=== PATIENT | male | born 1965 | race African-American/Black ===

== ENCOUNTER 2020-05-02 09:16 | Emergency (ER) | payer MEDICAID ==
[~2020-05-02] VITALS: Ht 172.7 cm; Wt 70.0 kg
[2020-05-02] MEDS ORDERED: MORPHINE SULFATE 4 MG/ML CPJ (NOT FOR IM USE) IV ONE (09:45)
[2020-05-02] MEDS ORDERED: PROPOFOL 200MG/20ML VIAL IV ONE (09:45)
[2020-05-02] MEDS ORDERED: ONDANSETRON HCL 4MG/2ML INJ IV ONE (09:45)
[2020-05-02] MEDS ORDERED: KETAMINE HCL 50 MG/ML 10ML IV ONE (09:45)
[2020-05-02 12:15] VITALS: BP 140/72
== END 2020-05-02 12:21 | disposition home or self-care (01) ==
LOC: ER 09:40
DX: S43.014A Anterior dislocation of right humerus, initial encounter (principal); I10 Essential (primary) hypertension; E11.9 Type 2 diabetes mellitus without complications; X58.XXXA Exposure to other specified factors, initial encounter; Y93.89 Activity, other specified; Y92.488 Other paved roadways as the place of occurrence of the external cause
CPT/HCPCS: 23650; 73030; 96374; 96375; 99152; 99285; J2270; J2405; J2704; J3490

== ENCOUNTER 2021-12-20 13:25 | Emergency (ER) | payer MEDICAID ==
[~2021-12-20] VITALS: Ht 160 cm; Wt 70.0 kg
[2021-12-20 13:31] VITALS: BP 167/87
[2021-12-21] MEDS ORDERED: ERYT1OIN6 EACHEYE (01:39)
[2021-12-21] MEDS ORDERED: ACET-2708 MT (01:39)
[2021-12-21] MEDS ORDERED: FLUORESCEIN SODIUM 1MG/STRIP RIGHTEYE ONE (01:45)
[2021-12-21] MEDS ORDERED: ACETAMINOPHEN 500MG TABLET PO ONE (01:45)
== END 2021-12-21 02:00 | disposition home or self-care (01) ==
LOC: ER 13:25
DX: S05.01XA Injury of conjunctiva and corneal abrasion without foreign body, right eye, initial encounter (principal); X58.XXXA Exposure to other specified factors, initial encounter; Y93.9 Activity, unspecified; Y92.9 Unspecified place or not applicable; H57.11 Ocular pain, right eye; I10 Essential (primary) hypertension; E11.9 Type 2 diabetes mellitus without complications
CPT/HCPCS: 99283

== ENCOUNTER 2022-08-04 04:01 | Emergency (ER) | payer MEDICAID ==
[~2022-08-04] VITALS: Ht 160 cm; Wt 68.0 kg
[~2022-08-04 04:01] MED LIST: ACET-2708 MT; ERYT1OIN6 EACHEYE
[2022-08-04] MEDS ORDERED: LIDOCAINE 5% PATCH TOP SCH (06:00)
[2022-08-04] MEDS ORDERED: KETOROLAC 60MG/2ML VIAL IM ONE (06:00)
[2022-08-04] MEDS ORDERED: HYDROCODONE/ACETAMINOPHEN 5/325MG TABLET PO ONE (06:00)
[2022-08-04] MEDS: LIDOCAINE 5% PATCH TOP NR ×2 (06:44→06:46)
[2022-08-04 06:46] VITALS: BP 185/112
[2022-08-04] MEDS ORDERED: IBUP-2029 MT (07:26)
[2022-08-04] MEDS ORDERED: LIDO700A15 TP (07:26)
[2022-08-04] MEDS ORDERED: BACL-141 MT (07:26)
== END 2022-08-04 08:09 | disposition home or self-care (01) ==
LOC: ER 04:01
DX: M54.59 Other low back pain (principal); I10 Essential (primary) hypertension; E11.9 Type 2 diabetes mellitus without complications
CPT/HCPCS: 96372; 99283; J1885

== ENCOUNTER 2025-05-16 10:07 | Emergency (ER) | payer MEDICAID ==
[~2025-05-16] VITALS: Ht 157.5 cm; Wt 68.0 kg
[~2025-05-16 10:07] MED LIST changes: +BACL-141 MT; +IBUP-1455 MT; +LIDO-53 TP
[2025-05-16 10:34] VITALS: TEMP 36.9; O2SAT 100
[2025-05-16 13:22] LABS: BASOPHILS % 0.2 % (0.0-2.0); EOSINOPHILS % 0.1 % (0.0-5.0); HEMATOCRIT. 43.0 % (42.0-52.0); HEMOGLOBIN. 14.1 g/dL (14.0-18.0); LYMPHOCYTES % 7.7 % (20.0-50.0); MEAN PLATELET VOLUME 9.4 fl (7.4-10.4); MONOCYTES % 4.0 % (2.0-8.0); NEUTROPHILS % 88.0 % (40.0-76.0); PLATELET 196 x1000/uL (130-400); RED BLOOD CELL COUNT 4.85 mill/uL (4.7-6.1); RED CELL DISTRIBUTION WIDTH 14.4 % (11.6-14.6)
[2025-05-16 13:31] LABS: CREATININE 0.9 mg/dL (0.6-1.3)
[2025-05-16 13:32] LABS: UREA NITROGEN BLOOD 7 mg/dL (9-23)
[2025-05-16 13:33] LABS: ASPARTATE AMINOTRANSFERASE 14 IU/L (<34)
[2025-05-16 13:34] LABS: BILIRUBIN DIRECT 0.3 mg/dL (<=3.0); BILIRUBIN TOTAL 1.2 mg/dL (0.1-1.0); PROTEIN TOTAL 6.9 g/dL (6.0-8.3)
[2025-05-16] MEDS: LACTULOSE 20G/30ML UDC PO ONE (13:39)
[2025-05-16] MEDS: BISACODYL 10MG SUPP PR ONE (13:39)
[2025-05-16] MEDS ORDERED: LACT10SO81 MT (15:39)
[2025-05-16] MEDS ORDERED: BISA10SU62 RC (15:39)
[2025-05-16 15:44] VITALS: BP 166/91; PULSE 84; RESP 18; O2SAT 100
== END 2025-05-16 15:47 | disposition home or self-care (01) ==
LOC: ER 10:07
DX: K59.00 Constipation, unspecified (principal); I10 Essential (primary) hypertension; E11.9 Type 2 diabetes mellitus without complications; Z79.84 Long term (current) use of oral hypoglycemic drugs; Z79.899 Other long term (current) drug therapy
CPT/HCPCS: 36415; 74022; 80048; 80076; 85025; 99284

== ENCOUNTER 2025-07-04 15:59 | Emergency (ER) | payer SELFPAY ==
[~2025-07-04] VITALS: Ht 172.7 cm; Wt 75.0 kg
[~2025-07-04 15:59] MED LIST changes: +BISA10SU62 RC; +LACT10SO81 MT
[2025-07-04 16:15] VITALS: TEMP 36.8; O2SAT 99
[2025-07-04 16:32] LABS: BASOPHILS % 0.2 % (0.0-2.0); EOSINOPHILS % 0.4 % (0.0-5.0); HEMATOCRIT. 43.4 % (42.0-52.0); HEMOGLOBIN. 14.1 g/dL (14.0-18.0); LYMPHOCYTES % 34.9 % (20.0-50.0); MEAN PLATELET VOLUME 9.1 fl (7.4-10.4); MONOCYTES % 6.8 % (2.0-8.0); NEUTROPHILS % 57.7 % (40.0-76.0); PLATELET 193 x1000/uL (130-400); RED BLOOD CELL COUNT 4.91 mill/uL (4.7-6.1); RED CELL DISTRIBUTION WIDTH 14.6 % (11.6-14.6)
[2025-07-04 16:47] LABS: CREATININE 0.9 mg/dL (0.6-1.3); UREA NITROGEN BLOOD 9 mg/dL (9-23)
[2025-07-04] MEDS ORDERED: LACTULOSE 20G/30ML UDC PO ONE (17:00)
[2025-07-04 17:39] LABS: GLUCOSE URINE 3+ (NEGATIVE); KETONES URINE NEGATIVE (NEGATIVE)
[2025-07-04] MEDS: LACTULOSE 20G/30ML UDC PO NR (17:42)
[2025-07-04] MEDS: BISACODYL 10MG SUPP PR ONE (17:42)
[2025-07-04 18:12] LABS: CLARITY URINE CLEAR (CLEAR); COLOR URINE YELLOW (YELLOW); LEUKOCYTE ESTERASE URINE NEGATIVE (NEGATIVE); NITRITE URINE NEGATIVE (NEGATIVE); OCCULT BLOOD URINE NEGATIVE (NEGATIVE); PH URINE 6.5 (4.5-8.0); PROTEIN URINE NEGATIVE (NEGATIVE); SPECIFIC GRAVITY URINE 1.028 (1.005-1.030); UROBILINOGEN URINE 0.2 E.U./dL (0.2-1.0)
[2025-07-04 18:13] LABS: WBC URINE 0-2 /hpf (0-2)
[2025-07-04 18:14] LABS: BACTERIA URINE TRACE; RBC URINE NONE SEEN /hpf (0-2); SQUAMOUS EPITHELIAL CELL URINE RARE /lpf (RARE/1+)
[2025-07-04] MEDS: NA PHOS,M-B/NA PHOS,DI-BA ENEMA 118ML PR ONE (18:45)
[2025-07-04] MEDS ORDERED: SENNOSIDES/DOCUSATE SOD 8.6/50MG TABLET PO PRN (21:15)
[2025-07-04] MEDS: POLYETHYLENE GLYCOL 3350 (17GM) 1 DOSE PACK PO ONE (21:31)
[2025-07-04] MEDS: KETOROLAC 30MG/ML VIAL IM ONE (23:30)
[2025-07-04] MEDS: ONDANSETRON 4MG ODT PO ONE (23:30)
[2025-07-05] MEDS ORDERED: POLY17PO3 MT (00:13)
[2025-07-05] MEDS ORDERED: PSYL575P22 MT (00:13)
[2025-07-05] MEDS ORDERED: SENN-139 MT (00:13)
[2025-07-05 00:25] VITALS: BP 137/81; PULSE 93; RESP 20; O2SAT 99
== END 2025-07-05 00:26 | disposition home or self-care (01) ==
LOC: ER 15:59 → CMPBEDREQ 07-05 21:08
DX: K59.00 Constipation, unspecified (principal); I10 Essential (primary) hypertension; E11.9 Type 2 diabetes mellitus without complications; Z79.899 Other long term (current) drug therapy; Z98.890 Other specified postprocedural states
CPT/HCPCS: 80048; 81003; 85025; 36415; 74018; 96372; 99284; Q0162; Z7610; J1885